=== PATIENT | female | born 1970 | race American Indian/Alaskan Native ===

== ENCOUNTER 2019-01-05 12:40 | Emergency (ER) | payer MEDICAID ==
[2019-01-05] MEDS ORDERED: TYLENOL PO ONE (13:23)
[2019-01-05] MEDS ORDERED: PEPCID PO ONE (13:23)
[2019-01-05] MEDS ORDERED: IBUPROFEN PO ONE (13:23)
--- NOTE | 2019-01-05 13:24 | Emergency Department Report ---
ED General Adult HPI - General Chief complaint: Chest Pain Stated complaint: CHEST PAIN Time Seen by Provider: 01/05/19 13:00 Source: patient, EMS (ems notes not available at time of chart dictation), RN notes reviewed Mode of arrival: Ambulatory Limitations: Physical Limitation, Other (patient is a poor historian) - History of Present Illness Initial comments: This is a 48-year-old female. Her primary care doctor is Dr. Patel Glez. Her past medical history includes conversion disorder with seizures or convulsions, hemiplegia, hypokalemia, depression, cluster headache, hypertension, GERD/gastritis with presumed esophagitis. Also has a history of moyamoya disease The patient presents to the ER with a complaint of nontraumatic left-sided chest wall pain. The chest wall pain involves the breast, and neck. There is no vomiting. There is no diaphoresis. Patient denies exertional shortness of breath. The patient denies similar thunderclap headache. She denies ocular discharge. She denies exertional shortness of breath. She denies vomiting. She denies lower abdominal pain. She denies urinary symptoms. She is not certain if she has taken aspirin in the past couple days. As per her medication list, it appears that she takes daily aspirin. She makes known notation of leg pain or leg swelling. She denies oral contraceptive use. -: Gradual Location: chest Severity scale (0 -10): 6 Quality: aching Consistency: constant Improves with: rest Worsens with: movement - Related Data Allergies Allergy/AdvReac Type Severity Reaction Status Date / Time No Known Allergies Allergy Unverified 01/05/19 14:09 ED Review of Systems ROS: Stated complaint: CHEST PAIN Other details as noted in HPI Constitutional: denies: fever Eyes: denies: eye discharge ENT: other (chronic dental pain). denies: epistaxis Respiratory: denies: wheezing Cardiovascular: chest pain Genitourinary: denies: dysuria Musculoskeletal: arthralgia Neurological: weakness (chronic upper extremity weakness) ED Past Medical Hx - Past Medical History Previous Medical History?: Yes Hx Hypertension: Yes Hx CVA: Yes Hx Heart Attack/AMI: No Hx Congestive Heart Failure: No Hx Diabetes: No Hx Deep Vein Thrombosis: No Hx Pulmonary Embolism: No Hx GERD: Yes Hx Liver Disease: No Hx Renal Disease: No Hx of Cancer: No Hx Arthritis: No Hx Headaches / Migraines: No Hx Seizures: Yes Hx Kidney Stones: No Hx Psychiatric Treatment: No Hx Asthma: No Hx COPD: No Hx Tuberculosis: No Hx Dementia: No Hx HIV: No - Surgical History Past Surgical History?: No Hx Coronary Stent: No Hx Open Heart Surgery: No Hx Pacemaker: No Hx Internal Defibrillator: No Hx Cholecystectomy: No Hx Appendectomy: No Hx Breast Surgery: No - Social History Smoking Status: Never Smoker Substance Use Type: None ED Physical Exam - General Limitations: Physical Limitation General appearance: alert, anxious, obese - Head Head exam: Present: atraumatic, normocephalic - Eye Eye exam: Present: normal appearance - ENT ENT exam: Present: normal orophraynx, mucous membranes moist, normal external ear exam, other (she has poor dentition) - Neck Neck exam: Present: normal inspection, full ROM. Absent: tenderness, mening ismus - Respiratory Respiratory exam: Present: normal lung sounds bilaterally, chest wall tenderness, other (chaperoned by a auto research engineer Domingo Banegas). Absent: respiratory distress, wheezes, rales, rhonchi, stridor - Cardiovascular Cardiovascular Exam: Present: regular rate, normal rhythm, normal heart sounds. Absent: bradycardia, tachycardia, irregular rhythm, systolic murmur, diastolic murmur, rubs, gallop - GI/Abdominal GI/Abdominal exam: Present: soft. Absent: distended, tenderness, guarding, rebound, rigid, pulsatile mass - Extremities Exam Extremities exam: Present: pedal edema, other (2+ pulses noted in the bilateral upper, lower extremities. Compartments soft. No long bony tenderness. The pelvis is stable.). Absent: normal inspection (contraction noted in left upper extremity. Patient and a chronic-appearing splint.), tenderness, calf tenderness - Back Exam Back exam: Present: normal inspection, full ROM. Absent: tenderness, CVA tenderness (R), CVA tenderness (L), paraspinal tenderness, vertebral tenderness - Neurological Exam Neurological exam: Present: alert, other (there is no facial droop. The tongue is midline. The extraocular movements are intact bilaterally. 5 out of 5 strength in 4 extremities bilaterally. Sensation is intact to light touch in 4 extremities.) - Psychiatric Psychiatric exam: Present: anxious - Skin Skin exam: Present: warm, dry, intact, normal color. Absent: rash ED Course Vital Signs 01/05/19 01/05/19 01/05/19 12:51 14:13 15:06 Temperature 98.2 F Pulse Rate 61 Respiratory 14 18 Rate Blood Pressure 144/86 Blood Pressure 144/86 [Right] O2 Sat by Pulse 100 98 Oximetry 01/05/19 01/05/19 01/05/19 15:16 15:56 16:11 Temperature Pulse Rate Respiratory Rate Blood Pressure Blood Pressure [Right] O2 Sat by Pulse 99 87 100 Oximetry 01/05/19 01/05/19 01/05/19 16:15 16:30 16:45 Temperature Pulse Rate Respiratory Rate Blood Pressure 147/88 160/94 160/94 Blood Pressure [Right] O2 Sat by Pulse 99 100 100 Oximetry 01/05/19 01/05/19 01/05/19 17:01 17:15 17:31 Temperature Pulse Rate Respiratory 18 20 Rate Blood Pressure 161/73 161/73 149/93 Blood Pressure [Right] O2 Sat by Pulse 100 98 98 Oximetry - Reevaluation(s) Reevaluation #1: 01/05/19 14:23 Differential diagnosis, including but not limited to: GERD, gastritis, hiatal hernia, costochondritis, pulmonary embolism, anxiety, pneumonia Assessment and plan: 48-year-old female with poorly characterized reproducible chest wall pain. She is on daily aspirin therapy. EKG nonspecific. Patient is smiling and laughing with ER staff members, and is eating food right now it appears quite comfortable. She is not tachycardic, she is not hypoxic, does not appear to have asymmetrically swollen lower extremities, I think a pulmonary embolus was quite unlikely. We will treat her pain, and obtain laboratory stud ies to risk stratify patient for pulmonary embolism, and acute coronary syndrome. Of note, patient's advanced directives include DO NOT RESUSCITATE, DO NOT INTUBATE. Reevaluation #2: 01/05/19 18:17 Patient went to nuclear medicine study, and then became agitated, and would not cooperate with the study. Patient is medicated to allow for acquisition of diagnostics. Her enclosed paperwork from care home indicates an allergy to contrast dye, which is not further specified are clarified. 01/05/19 18:39 Reevaluation #3: 01/05/19 18:39 The patient continues to remain agitated and nuclear medicine suite. The technologist indicates she is still climbing on the stretcher, and not responding to commands or instructions. Geodon is ordered Reevaluation #4: 01/05/19 19:12 X-ray of the chest is negative for acute disease. Geodon was not needed. Resting comfortably in stretcher, no acute distress. Reevaluation #5: 01/05/19 19:25 Nuclear medicine study reviewed and appreciated. Normal perfusion images are noted. This study carries an extremely low probability of pulmonary embolism. He she will be discharged to follow up with outpatient primary care, cardiology. ED Medical Decision Making - Lab Data Result diagrams: 01/05/19 13:49 01/05/19 13:49 Vital Signs 01/05/19 01/05/19 12:51 14:13 Temperature 98.2 F Pulse Rate 61 Respiratory 14 18 Rate Blood Pressure 144/86 Blood Pressure 144/86 [Right] O2 Sat by Pulse 100 Oximetry Lab Results 01/05/19 Range/Units 13:49 WBC 8.4 (4.5-11.0) K/mm3 RBC 4.20 (3.65-5.03) M/mm3 Hgb 12.6 (10.1-14.3) gm/dl Hct 38.2 (30.3-42.9) % MCV 91 (79-97) fl MCH 30 (28-32) pg MCHC 33 (30-34) % RDW 15.4 H (13.2-15.2) % Plt Count 267 (140-440) K/mm3 Lymph % (Auto) 28.5 (13.4-35.0) % [place] % (Auto) 6.3 (0.0-7.3) % Eos % (Auto) 4.0 (0.0-4.3) % Baso % (Auto) 0.5 (0.0-1.8) % Lymph # 2.4 (1.2-5.4) K/mm3 [place] # 0.5 (0.0-0.8) K/mm3 Eos # 0.3 (0.0-0.4) K/mm3 Baso # 0.0 (0.0-0.1) K/mm3 Seg Neutrophils % 60.7 (40.0-70.0) % Seg Neutrophils # 5.1 (1.8-7.7) K/mm3 - EKG Data -: EKG Interpreted by Wi EKG shows normal: sinus rhythm Rate: normal - EKG Data When compared to previous EKG there are: previous EKG unavailable 01/05/19 14:24 This is a normal sinus rhythm, 63 bpm, normal axis, QTC 443 ms, T wave inversion V2, there is motion artifact, there is low voltage, this is an abnormal EKG, there is no prior for comparison, this EKG is not consistent with ST elevation myocardial infarction. - Radiology Data Radiology results: pending Critical care attestation.: If time is entered above; I have spent that time in minutes in the direct care of this critically ill patient, excluding procedure time. ED Disposition Clinical Impression: History of chest pain Disposition: [id number]/TX-[id number] ANOTHER TYPE HLTHCARE Is pt being admited?: No Does the pt Need Aspirin: No Condition: Stable Additional Instructions: Continue outpatient medications. Follow up with a consulting utility forester within the next 3-5 days for complaint of chest pain. Avoid consumption of Motrin, ibuprofen, Naprosyn, Aleve, heavy, spicy foods. Return to the emergency room right away with new, worsening or different symptoms, or symptoms not present on the initial emergency room evaluation. Referrals: LB MARES MD [Primary Care Provider] - 3-5 Days [facility] [Provider Group] - 3-5 Days [facility] [Provider Group] - 3-5 Days Time of Disposition: 19:27 (back to care home)
[2019-01-05 14:14] LABS: Basophils % (Auto) 0.5 % (0.0-1.8); Eosinophils # (Auto) 0.3 K/mm3 (0.0-0.4); Hematocrit 38.2 % (30.3-42.9); Hemoglobin 12.6 gm/dl (10.1-14.3); Lymphocytes # (Auto) 2.4 K/mm3 (1.2-5.4); Lymphocytes % (Auto) 28.5 % (13.4-35.0); Mean Corpuscular HGB Conc 33 % (30-34); Mean Corpuscular Volume 91 fl (79-97); Monocytes # (Auto) 0.5 K/mm3 (0.0-0.8); Monocytes % (Auto) 6.3 % (0.0-7.3); Platelet Count 267 K/mm3 (140-440); Red Cell Distribution Width 15.4 % (13.2-15.2)
[2019-01-05 14:32] LABS: Alanine Aminotransferase 14 units/L (7-56); BUN/Creatinine Ratio 17; Blood Urea Nitrogen 12 mg/dL (7-17); Calcium 9.3 mg/dL (8.4-10.2); Hemolysis Index 10
[2019-01-05 14:36] LABS: INR 0.98 (0.87-1.13)
--- NOTE | 2019-01-05 15:14 | XRay Report ---
AP CHEST: HISTORY: chest pain There is poor inspiration. AP view of the chest demonstrates a normal mediastinal and cardiac contour with clear lungs and normal bony and soft tissue structures. IMPRESSION: Negative expiratory chest x-ray.
[2019-01-05] MEDS ORDERED: ATIVAN IV STA (18:02)
[2019-01-05] MEDS ORDERED: HALDOL IM PRN (18:02)
[2019-01-05] MEDS ORDERED: GEODON IM STA (18:38)
[2019-01-05] MEDS ORDERED: GEODON IM ONE (18:39)
--- NOTE | 2019-01-05 19:23 | Nuclear Medicine Report ---
PROCEDURE: Nuclear medicine ventilation and perfusion lung scan. TECHNIQUE: Ventilation imaging was done in the posterior projection using 18.31 mCi of xenon-133 gas . Perfusion imaging was done in multiple projections using 4.61 mCi of technetium 99m MAA. HISTORY: Chest pain. COMPARISONS: Comparison chest radiograph 01/05/2019. FINDINGS: There is homogeneous ventilation bilaterally. There is minimal trapping of xenon gas bilaterally duri ng the washout phase of the study. The perfusion images are homogeneous bilaterally. There are no per fusion defects identified. The perfusion images are normal and carry an extremely low probability of pulmonary embolism. IMPRESSION: Normal perfusion images. This document is electronically signed by Jermaine Short MD., January 05 2019 07:21:10 PM ET
[2019-01-05 21:59] VITALS: BP 147/87
== END 2019-01-05 21:59 | disposition other institution (70) ==
LOC: ED 12:40
DX: R07.89 Other chest pain (principal); F44.4 Conversion disorder with motor symptom or deficit; R56.9 Unspecified convulsions; G81.90 Hemiplegia, unspecified affecting unspecified side; E87.6 Hypokalemia; G44.009 Cluster headache syndrome, unspecified, not intractable; I10 Essential (primary) hypertension; K21.9 Gastro-esophageal reflux disease without esophagitis; Z86.73 Personal history of transient ischemic attack (TIA), and cerebral infarction without residual deficits
CPT/HCPCS: 36415; 71045; 78582; 80053; 82962; 84484; 84702; 85025; 85379; 85610; 85730; 93005; 93010; 96372; 96374; 99285; A9540; A9558; J1630; J2060; J3486

== ENCOUNTER 2019-01-18 03:26 | Inpatient (IN) | payer MEDICAID ==
[2019-01-18] MEDS ORDERED: SOLU-Medrol IV ONE (04:07)
[2019-01-18] MEDS ORDERED: PROVENTIL IH ONE (04:07)
[2019-01-18] MEDS ORDERED: ATROVENT IH ONE (04:07)
[2019-01-18 04:43] LABS: Basophils % (Auto) 0.1 % (0.0-1.8); Eosinophils # (Auto) 0.5 K/mm3 (0.0-0.4); Eosinophils % (Auto) 2.9 % (0.0-4.3); Hematocrit 38.1 % (30.3-42.9); Hemoglobin 12.5 gm/dl (10.1-14.3); Lymphocytes # (Auto) 1.5 K/mm3 (1.2-5.4); Lymphocytes % (Auto) 9.4 % (13.4-35.0); Mean Corpuscular HGB Conc 33 % (30-34); Mean Corpuscular Volume 91 fl (79-97); Monocytes # (Auto) 0.9 K/mm3 (0.0-0.8); Monocytes % (Auto) 5.7 % (0.0-7.3); Platelet Count 267 K/mm3 (140-440); Red Cell Distribution Width 15.1 % (13.2-15.2)
--- NOTE | 2019-01-18 04:43 | XRay Report ---
CHEST 1 VIEW INDICATION: MAIN: PER TRIAGE: Pt reports sudden onset of midsternal, stabbing cp w/ eliz on exertion . COMPARISON: 01/05/2019. FINDINGS: Support devices: None. Heart: Normal. Lungs/Pleura: There is pulmonary venous hypertension. There appears to be mild interstitial edema. No consolidation, significant effusion, or pneumothorax. IMPRESSION: 1. Pulmonary venous hypertension with questionable mild interstitial edema. Signer Name: Diego Lima MD Signed: 01/18/2019 4:38 AM Workstation Name: [id number]
[2019-01-18 04:56] LABS: INR 0.97 (0.87-1.13)
[2019-01-18 04:57] LABS: Partial Thromboplastin Time 28.6 Sec. (24.2-36.6)
[2019-01-18 05:06] LABS: BUN/Creatinine Ratio 13; Blood Urea Nitrogen 10 mg/dL (7-17); Calcium 8.9 mg/dL (8.4-10.2); Hemolysis Index 127
--- NOTE | 2019-01-18 05:19 | Emergency Department Report ---
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 The patient reports cough, denies fever. Denies history of asthma. Patient denies leg pain or swelling. Of note, the niles kaufman was seen in this ER approximately 2 weeks ago with complaint of chest pain. Patient has history of contrast allergy, so VQ scan was done at this time, and found to be normal, with low probability for PE. MD Complaint: chest pain -: days(s) (1) Onset: during rest Pain Location: left chest Pain Radiation: none Quality: sharp Consistency: constant Improves With: nothing Worsens With: nothing re: dyspnea Other Symptoms: cough. denies: fever - Related Data Allergies Allergy/AdvReac Type Severity Reaction Status Date / Time acetaminophen [From Tylenol] Allergy Unknown Verified 01/18/19 04:14 Iodinated Contrast- Oral and Allergy Unknown Verified 01/18/19 04:14 IV Dye penicillin G Allergy Unknown Verified 01/18/19 04:14 Heart Score - HEART Score History: Slightly suspicious EKG: Normal Age: 45-65 Risk factors: 1-2 risk factors Troponin: < normal limit HEART Score: 2 ED Review of Systems ROS: Stated complaint: CP Other details as noted in HPI Comment: All other systems reviewed and negative Constitutional: denies: fever Respiratory: shortness of breath, wheezing Cardiovascular: chest pain Gastrointestinal: denies: nausea, vomiting Musculoskeletal: other (denies leg pain) ED Past Medical Hx - Past Medical History Previous Medical History?: Yes Hx Hypertension: Yes Hx CVA: Yes Hx Heart Attack/AMI: No Hx Congestive Heart Failure: No Hx Diabetes: No Hx Deep Vein Thrombosis: No Hx Pulmonary Embolism: No Hx GERD: Yes Hx Liver Disease: No Hx Renal Disease: No Hx Arthritis: No Hx Headaches / Migraines: No Hx Seizures: Yes Hx Kidney Stones: No Hx Psychiatric Treatment: No Hx Asthma: No Hx COPD: No Hx Tuberculosis: No Hx Dementia: No Hx HIV: No - Surgical History Hx Coronary Stent: No Hx Open Heart Surgery: No Hx Pacemaker: No Hx Internal Defibrillator: No Hx Cholecystectomy: No Hx Appendectomy: No Hx Breast Surgery: No - Social History Smoking Status: Never Smoker ED Physical Exam - General Limitations: Physical Limitation, Other General appearance: alert - Head Head exam: Present: atraumatic, normocephalic - Eye Eye exam: Present: normal appearance - ENT ENT exam: Present: mucous membranes moist - Neck Neck exam: Present: normal inspection - Respiratory Respiratory exam: Present: respiratory distress, wheezes - Cardiovascular Cardiovascular Exam: Present: normal rhythm, tachycardia - GI/Abdominal GI/Abdominal exam: Present: soft. Absent: distended, tenderness - Extremities Exam Extremities exam: Present: normal inspection. Absent: pedal edema, calf tenderness - Neurological Exam Neurological exam: Present: alert. Absent: CN II-XII intact (dysarthria present), motor sensory deficit (baseline left sided weakness present) - Psychiatric Psychiatric exam: Present: normal affect, normal mood - Skin Skin exam: Present: warm, dry, intact, normal color ED Course Vital Signs 01/18/19 01/18/19 01/18/19 03:56 04:00 04:02 Temperature 98.7 F Pulse Rate 78 104 H Pulse Rate [ Bilateral Throughout] Respiratory 23 19 Rate Respiratory Rate [Bilateral Throughout] Blood Pressure 174/109 O2 Sat by Pulse 94 93 Oximetry 01/18/19 01/18/19 01/18/19 04:06 04:28 04:30 Temperature Pulse Rate 104 H 106 H Pulse Rate [ 102 H Bilateral Throughout] Respiratory 13 28 H Rate Respiratory 26 H Rate [Bilateral Throughout] Blood Pressure 157/103 155/94 O2 Sat by Pulse 96 98 Oximetry 01/18/19 01/18/19 04:55 05:00 Temperature Pulse Rate 128 H Pulse Rate [ 120 H Bilateral Throughout] Respiratory 17 Rate Respiratory 26 H Rate [Bilateral Throughout] Blood Pressure 161/92 O2 Sat by Pulse 95 Oximetry ED Medical Decision Making - Lab Data Result diagrams: 01/18/19 04:28 01/18/19 04:28 - EKG Data -: EKG Interpreted by Me EKG shows normal: sinus rhythm, axis, intervals, QRS complexes, ST-T waves Rate: tachycardia (rate 108) - EKG Data Interpretation: no acute changes - Radiology Data Radiology results: report reviewed, image reviewed - Medical Decision Making - 48 yo F from assisted, hx CVA, with left chest pain, cough, wheezing - albuterol nebs, solumedrol given; wheezing improved; pt denies hx of asthma - pt afebrile, however, has elevated WBCs of 16 - CXR shows interstitial infiltrates, possible pulm edema; BNP normal, possibly infectious - blood cultures drawn and levaquin given - EKG shows sinus tach with no ST changes, troponin normal - will admit to hospitalist, Dr Reagan, for further management - Differential Diagnosis pneumonia, bronchitis, pulm edema Critical Care Time: Yes Critical care time in (mins) excluding proc time.: 35 Critical care attestation.: If time is entered above; I have spent that time in minutes in the direct care of this critically ill patient, excluding procedure time. Critical Care Time: 35 minutes ED Disposition Clinical Impression: Acute chest pain, Acute respiratory distress Disposition: - OP ADMIT IP TO THIS HOSP Is pt being admited?: Yes Condition: Stable Instructions: Chest Pain (ED) Referrals: PRIMARY CARE, [Primary Care Provider] - 3-5 Days Time of Disposition: 05:30
[2019-01-18] MEDS ORDERED: LEVAQUIN 750MG/150ML 750 MG/150 ML BAG IV ONE (05:26)
[2019-01-18] MEDS ORDERED: MORPHINE IV PRN (06:28)
[2019-01-18] MEDS ORDERED: ZOFRAN IV PRN (06:29)
[2019-01-18] MEDS ORDERED: NITROSTAT SL PRN (06:31)
[2019-01-18] MEDS ORDERED: ROBITUSSIN PO PRN (06:33)
[2019-01-18] MEDS ORDERED: HEPARIN ONE (10:02)
[2019-01-18] MEDS ORDERED: BABY ASPIRIN ONE (10:02)
[2019-01-18] MEDS ORDERED: NITRO-BID 2% TP ONE (10:03)
[2019-01-18] MEDS: BABY ASPIRIN PO SCH (10:11)
[2019-01-18] MEDS: NITRO-BID 2% TP SCH (10:11)
[2019-01-18] MEDS: HEPARIN SUB-Q SCH ×2 (10:11→22:35)
--- NOTE | 2019-01-18 10:14 | History and Physical Report ---
CHIEF COMPLAINT: Chest pain. Other complaint includes shortness of breath. HISTORY OF PRESENT ILLNESS: The patient is a 48-year-old female brought from the [place] [facility] because of chest pain, which the patient said it is in the retrosternal area and also in the precordial area. Pain lasted for one day and was associated with shortness of breath and wheezing. There was also history of nausea with no vomiting. The patient was admitted to having non-productive cough and denied history of fever or chills. There is also no history of swelling in the ankles. The patient was seen in the Emergency Room 2 weeks ago with complaint of chest pain and had a negative V/Q scan. PAST MEDICAL HISTORY: Pertinent for cerebrovascular accident with left-sided weakness, hypertension. Also, the patient has past history of gastroesophageal reflux disease, seizure disorder. PAST SURGICAL HISTORY: Unremarkable. FAMILY HISTORY: Reviewed and noncontributory. SOCIAL HISTORY: The patient stays at the [place] [facility]. Does not smoke. Does not drink alcohol or use illicit drug. MEDICATIONS: The patient's home medications are not known at this time. ALLERGIES: The patient is allergic to ACETAMINOPHEN, IODINATED CONTRAST, PENICILLIN. REVIEW OF SYSTEMS: CONSTITUTIONAL: There is no fever, no chills, no diaphoresis. HEENT: There is no headache or sore throat. CARDIOVASCULAR: Chest pain is present. No orthopnea. RESPIRATORY: Shortness of breath is present. Cough is present. GASTROINTESTINAL: There is nausea, but no vomiting. No abdominal pain, diarrhea or constipation. NEUROLOGICAL: There is no numbness, no dizziness, no altered mental status. MUSCULOSKELETAL: There is no joint pain or swelling. DERMATOLOGICAL: There is no skin rash or itching. GENITOURINARY: There is no dysuria, hematuria or flank pain. Rest of system review is normal. PHYSICAL EXAMINATION: GENERAL: At the time of exam, the patient was found to be alert, oriented x 3, and not in acute distress. VITAL SIGNS: At the initial time of presentation shows temperature of 98.7 degrees Fahrenheit, pulse of 78, respiration 23, blood pressure 174/109 which later came down to 155/94. HEENT: Pupils to be equal, round, reactive to light and accommodation. Extraocular muscles are intact. NECK: Supple with no JVD or carotid bruit. CARDIOVASCULAR: Normal first and second heart sounds with no gallops or murmurs. RESPIRATORY: Good air entry on both sides of the lungs with mild respiratory wheezing. GASTROINTESTINAL: Abdomen to be full, soft, nontender with no organomegaly or rigidity. NEUROLOGIC: The patient with dysarthria, which is chronic and left hemiparesis, which is old and chronic. No new focal neurologic deficit. MUSCULOSKELETAL: No joint swelling or tenderness. DERMATOLOGICAL: No skin rash. GENITOURINARY: No costovertebral angle tenderness. PERTINENT LABORATORY AND IMAGING STUDIES: The patient has chest x-ray done that shows pulmonary venous hypertension with questionable mild interstitial edema. The patient's lab [place] [id number] with CBC differential showing elevated segmented neutrophil count of 81.9%. The patient's chemistry showed low sodium level of 136 with rest of chemistry being unremarkable. The patient's troponin level was unremarkable. Brain natriuretic peptide level came back normal. DIAGNOSES: 1. Chest pain. 2. Bronchitis. PLAN OF CARE: 1. The patient will be admitted to telemetry. 2. The patient will have cardiac enzymes checked serially and involves troponin and CPK and CK-MB every 6 hours x 2 more levels. 3. The patient will have cardiology consult with Dr. Interiano. 4. The patient will be on aspirin 81 mg by mouth daily and will be on nitro paste half inch to the anterior chest wall q.i.d. 5. The patient will be on Nitrostat 0.4 mg sublingual every 5 minutes and will be on IV morphine 2 mg every 3 hours as needed for pain and IV Zofran 4 mg every 8 hours for nausea and vomiting. 6. The patient will be on IV Levaquin 750 mg daily for treatment of bronchitis. 7. The patient will be on guaifenesin 200 mg by mouth every 4 hours as needed for cough and will be on heparin 5000 units subcu q. 12 hours for DVT prophylaxis. 8. The patient will be on IV Zofran 4 mg every 8 hours as needed for nausea and vomiting and will be on oxygen by nasal cannula at 2 liters per minute. 9. The patient will remain n.p.o. until seen by the pipelines supervisor. JOB# [id number] OCN/NTS
--- NOTE | 2019-01-18 12:54 | Consultation ---
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 Patient was sent from the intermediate to the emergency department with report of chest pain and shortness of breath. Cardiac consultation has been requested. A chest x-ray reports pulmonary venous hypertension with questionable mild interstitial edema. Patient has an elevated WBC of 16,300. Pro BNP is normal. She has no fever. An ECG is sinus tachycardia, no acute ischemic changes. Medications and Allergies Allergies Allergy/AdvReac Type Severity Reaction Status Date / Time acetaminophen [From Tylenol] Allergy Unknown Verified 01/18/19 04:14 Iodinated Contrast- Oral and Allergy Unknown Verified 01/18/19 04:14 IV Dye penicillin G Allergy Unknown Verified 01/18/19 04:14 Home Medications Medication Instructions Recorded Confirmed Last Taken Type Aspirin 325 mg PO QDAY 01/18/19 01/18/19 Unknown History Baclofen [Lioresal] 10 mg PO TID 01/18/19 01/18/19 Unknown History levETIRAcetam [Keppra TAB] 500 mg PO BID 01/18/19 01/18/19 Unknown History Active Meds: Active Medications Aspirin (Baby Aspirin) 81 mg PO QDAY [facility] Last Admin: 01/18/19 10:11 Dose: Not Given Documented by: Guaifenesin (Robitussin) 200 mg PO Q4H PRN PRN Reason: Cough Heparin Sodium (Porcine) (Heparin) 5,000 unit SUB-Q Q12HR [facility] Last Admin: 01/18/19 10:11 Dose: 5,000 unit Documented by: Levofloxacin/Dextrose (Levaquin 750mg/150ml) 750 mg in 150 mls @ 100 mls/hr IV Q24HR [facility]; Protocol Morphine Sulfate (Morphine) 2 mg IV Q3H PRN PRN Reason: Pain, Moderate (4-6) Nitroglycerin (Nitro-Bid 2%) 0.5 inch TP QIDNTG [facility]; Protocol Last Admin: 01/18/19 10:11 Dose: 0.5 inch Documented by: Nitroglycerin (Nitrostat) 0.4 mg SL .Q5MIN PRN PRN Reason: Chest Pain Ondansetron HCl (Zofran) 4 mg IV Q8H PRN PRN Reason: Nausea And Vomiting Physical Examination Vital Signs Pulse Resp Pulse Ox 78 23 94 01/18/19 03:56 01/18/19 03:56 01/18/19 03:56 General appearance: no acute distress HEENT: Positive: PERRL Cardiac: Positive: Tachycardia Lungs: Positive: Decreased Breath Sounds Results 01/18/19 04:28 01/18/19 04:28 Coagulation 01/18/19 Range/Units 04:28 PT 12.6 (12.2-14.9) Sec. INR 0.97 (0.87-1.13) APTT 28.6 (24.2-36.6) Sec. CBC 01/18/19 Range/Units 04:28 WBC 16.3 H (4.5-11.0) K/mm3 RBC 4.20 (3.65-5.03) M/mm3 Hgb 12.5 (10.1-14.3) gm/dl Hct 38.1 (30.3-42.9) % Plt Count 267 (140-440) K/mm3 Lymph # 1.5 (1.2-5.4) K/mm3 Parmer # 0.9 H (0.0-0.8) K/mm3 Eos # 0.5 H (0.0-0.4) K/mm3 Baso # 0.0 (0.0-0.1) K/mm3 Comprehensive Metabolic Panel 01/18/19 Range/Units 04:28 Sodium 136 L (137-145) mmol/L Potassium 4.8 (3.6-5.0) mmol/L Chloride 101.3 (98-107) mmol/L Carbon Dioxide 22 (22-30) mmol/L BUN 10 (7-17) mg/dL Creatinine 0.8 (0.7-1.2) mg/dL Glucose 109 H (65-100) mg/dL Calcium 8.9 (8.4-10.2) mg/dL Assessment and Plan Chest pain Shortness of breath Prior CVA Hypertension
[2019-01-18 13:03] LABS: Creatine Kinase MB 1.2 ng/mL (0.0-4.0)
--- NOTE | 2019-01-18 18:34 | Progress Note ---
Assessment and Plan - Patient Problems (1) CVA (cerebral vascular accident) Current Visit: Yes Status: Acute Plan to address problem: At present patient has old CVA no evidence of new CVA. This dates hemiparesis has been there for years and has had no change. Risk factors fairly well controlled. (2) Acute chest pain Current Visit: Yes Status: Acute Plan to address problem: Essential workup of chest pain is negative has been that way in the recent past. Most likely etiology chronic cough and bronchitis while difficult to tail. Appears to be more pulmonary in nature we'll treat his bronchitis continue antibiotics and nebs. Patient has leukocytosis consistent with bronchitis or infectious etiology as well. (3) Acute respiratory distress Current Visit: Yes Status: Resolved (4) Morbid obesity Current Visit: Yes Status: Acute Plan to address problem: Patient not motivated to lose weight. Will be difficult with level of cognition. History Interval history: Patient well known to myself from the senior care 48-year-old with a history of previous CVA left hemiparesis, hypertension, GERD, seizure disorder presents with an episode of chest pain associated with shortness of breath for several days. He shouldn't such a poor historian and often times in the senior care will complain of headache. Has such expressive aphasia hard to determine what patient's complaint is. At this time she is not having any chest pain she points more to the flank and then again she will point more to headache and laugh. Very poor historian. Patient has had this symptom before and workup in senior care setting his been unremarkable. Patient has had a cough for several weeks prior to this consistent with bronchitis. At present patient seems to have atypical chest pain. Admitted to telemetry cardiac isoenzymes are unremarkable. Patient placed on antiplatelet therapy. We'll continue to treat bronchitis with Levaquin. Hospitalist Physical - Constitutional Vitals: Temp Pulse Resp BP Pulse Ox 98.7 F 100 H 28 H 142/89 94 01/18/19 04:02 01/18/19 16:00 01/18/19 16:00 01/18/19 16:00 01/18/19 16:00 General appearance: Present: no acute distress - EENT Eyes: Present: PERRL, EOM intact ENT: hearing intact, clear oral mucosa, dentition normal - Neck Neck: Present: supple, normal ROM - Respiratory Respiratory effort: normal Respiratory: bilateral: CTA - Cardiovascular Rhythm: regular - Extremities Extremities: no ischemia, pulses intact, pulses symmetrical Peripheral Pulses: within normal limits - Abdominal General gastrointestinal: soft, distended, normal bowel sounds, other (obese) - Integumentary Integumentary: Present: clear, warm, dry - Psychiatric Psychiatric: appropriate mood/affect, other (cognitive deficit expressive aphasia) - Neurologic Neurologic: focal deficits, moves all extremities Results - Labs CBC & Chem 7: 01/18/19 04:28 01/18/19 04:28 Labs: Laboratory Last Values WBC 16.3 K/mm3 (4.5-11.0) H 01/18/19 04:28 RBC 4.20 M/mm3 (3.65-5.03) 01/18/19 04:28 Hgb 12.5 gm/dl (10.1-14.3) 01/18/19 04:28 Hct 38.1 % (30.3-42.9) 01/18/19 04:28 MCV 91 fl (79-97) 01/18/19 04:28 MCH 30 pg (28-32) 01/18/19 04:28 MCHC 33 % (30-34) 01/18/19 04:28 RDW 15.1 % (13.2-15.2) 01/18/19 04:28 Plt Count 267 K/mm3 (140-440) 01/18/19 04:28 Lymph % (Auto) 9.4 % (13.4-35.0) L 01/18/19 04:28 Larue % (Auto) 5.7 % (0.0-7.3) 01/18/19 04:28 Eos % (Auto) 2.9 % (0.0-4.3) 01/18/19 04:28 Baso % (Auto) 0.1 % (0.0-1.8) 01/18/19 04:28 Lymph # 1.5 K/mm3 (1.2-5.4) 01/18/19 04:28 Larue # 0.9 K/mm3 (0.0-0.8) H 01/18/19 04:28 Eos # 0.5 K/mm3 (0.0-0.4) H 01/18/19 04:28 Baso # 0.0 K/mm3 (0.0-0.1) 01/18/19 04:28 Seg Neutrophils % 81.9 % (40.0-70.0) H 01/18/19 04:28 Seg Neutrophils # 13.3 K/mm3 (1.8-7.7) H 01/18/19 04:28 PT 12.6 Sec. (12.2-14.9) 01/18/19 04:28 INR 0.97 (0.87-1.13) 01/18/19 04:28 APTT 28.6 Sec. (24.2-36.6) 01/18/19 04:28 Sodium 136 mmol/L (137-145) L 01/18/19 04:28 Potassium 4.8 mmol/L (3.6-5.0) 01/18/19 04:28 Chloride 101.3 mmol/L (98-107) 01/18/19 04:28 Carbon Dioxide 22 mmol/L (22-30) 01/18/19 04:28 18 mmol/L 01/18/19 04:28 BUN 10 mg/dL (7-17) 01/18/19 04:28 0.8 mg/dL (0.7-1.2) 01/18/19 04:28 Estimated GFR > 60 ml/min 01/18/19 04:28 13 % 01/18/19 04:28 Glucose 109 mg/dL (65-100) H 01/18/19 04:28 Calcium 8.9 mg/dL (8.4-10.2) 01/18/19 04:28 86 units/L (30-135) 01/18/19 12:23 CK-MB (CK-2) 1.2 ng/mL (0.0-4.0) 01/18/19 12:23 CK-MB (CK-2) Rel Index 1.3 (0-4) 01/18/19 12:23 < 0.010 ng/mL (0.00-0.029) 01/18/19 12:23 NT-Pro-B Natriuret Pep 58.27 pg/mL (0-450) 01/18/19 04:28 - Imaging and Cardiology Chest x-ray: image reviewed Active Medications - Current Medications Current Medications: Generic Name Dose Route Start Last Admin Trade Name Silvio PRN Reason Stop Dose Admin Aspirin 81 mg 01/18/19 10:00 01/18/19 10:11 Baby Aspirin PO Not Given QDAY RENAE Guaifenesin 200 mg 01/18/19 06:33 Robitussin PO Q4H PRN Cough Heparin Sodium (Porcine) 5,000 unit 01/18/19 10:00 01/18/19 10:11 Heparin SUB-Q 5,000 unit Q12HR [facility] Administration Levofloxacin/Dextrose 750 mg in 150 mls @ 100 mls/hr 01/19/19 10:00 Levaquin 750mg/150ml IV Q24HR [facility] Protocol Morphine Sulfate 2 mg 01/18/19 06:28 Morphine IV Q3H PRN Pain, Moderate (4-6) Nitroglycerin 0.5 inch 01/18/19 10:00 01/18/19 10:11 Nitro-Bid 2% TP 0.5 inch QIDNTG [facility] Administration Protocol Nitroglycerin 0.4 mg 01/18/19 06:31 Nitrostat SL .Q5MIN PRN Chest Pain Ondansetron HCl 4 mg 01/18/19 06:29 Zofran IV Q8H PRN Nausea And Vomiting Nutrition/Malnutrition Assess - Attestation Statement I have reviewed and agreed w/ Malnutrition eval & tx plan: No
[2019-01-18 21:13] LABS: BUN/Creatinine Ratio 14; Blood Urea Nitrogen 10 mg/dL (7-17); Calcium 9.3 mg/dL (8.4-10.2); Hemolysis Index 10
[2019-01-18 21:16] LABS: Creatine Kinase MB 1.3 ng/mL (0.0-4.0)
[2019-01-18] MEDS: ROXICODONE PO PRN (22:35)
[2019-01-19] MEDS: NITRO-BID 2% TP SCH ×6 (06:08→18:12)
[2019-01-19] MEDS: ROXICODONE PO PRN ×2 (06:13→11:13)
[2019-01-19 07:50] LABS: Basophils % (Auto) 0.2 % (0.0-1.8); Eosinophils % (Auto) 0.2 % (0.0-4.3); Hematocrit 37.8 % (30.3-42.9); Hemoglobin 12.6 gm/dl (10.1-14.3); Lymphocytes # (Auto) 2.2 K/mm3 (1.2-5.4); Lymphocytes % (Auto) 14.5 % (13.4-35.0); Mean Corpuscular HGB Conc 33 % (30-34); Mean Corpuscular Volume 90 fl (79-97); Monocytes # (Auto) 0.8 K/mm3 (0.0-0.8); Monocytes % (Auto) 5.2 % (0.0-7.3); Platelet Count 263 K/mm3 (140-440); Red Cell Distribution Width 15.1 % (13.2-15.2)
[2019-01-19 08:17] LABS: BUN/Creatinine Ratio 17; Blood Urea Nitrogen 12 mg/dL (7-17); Calcium 9.1 mg/dL (8.4-10.2); Hemolysis Index 9
--- NOTE | 2019-01-19 08:34 | Progress Note ---
<ROXI BAUTISTA - Last Filed: 01/19/19 08:35> Assessment and Plan Chest pain Cardiac troponin levels are negative 2. EKG is a sinus rhythm with no acute ischemic ST or T-wave changes. Chest x-ray reveals normal cardiac silhouette, no interstitial edema or heart failure. VQ scan done on this presentation was reported negative. Shortness of breath Hypertension Prior CVA Recommendations: Patient's shortness of breath appears noncardiac, recommend pulmonary assessment of COPD and possible sleep apnea. We will obtain an echocardiogram for left ventricular function assessment, otherwise conservative cardiac management Subjective Date of service: 01/19/19 Interval history: No distress noted. Objective Vital Signs Temp Pulse Resp BP Pulse Ox 01/19/19 08:14 97.5 F L 74 16 155/96 97 01/19/19 03:56 97.5 F L 72 20 143/105 96 01/19/19 03:25 71 01/18/19 23:37 97.3 F L 94 H 20 146/102 96 01/18/19 20:34 103 H 01/18/19 19:50 99.1 F 102 H 20 139/91 95 01/18/19 18:09 98.2 F 102 H 16 148/96 97 01/18/19 17:20 103 H 23 146/93 97 01/18/19 17:10 104 H 28 H 145/95 95 01/18/19 17:00 102 H 28 H 143/92 97 01/18/19 16:50 110 H 25 H 143/92 95 01/18/19 16:40 100 H 27 H 141/91 95 01/18/19 16:30 101 H 27 H 141/91 93 01/18/19 16:20 100 H 25 H 137/85 97 01/18/19 16:00 100 H 28 H 142/89 94 01/18/19 15:30 99 H 26 H 139/96 97 01/18/19 15:00 105 H 22 97 01/18/19 14:30 101 H 21 144/92 97 01/18/19 14:00 104 H 26 H 145/90 98 01/18/19 13:30 106 H 19 146/87 99 01/18/19 13:00 104 H 23 144/85 98 01/18/19 12:30 103 H 24 155/78 97 01/18/19 12:00 108 H 25 H 148/92 96 01/18/19 11:30 97 H 21 131/80 95 01/18/19 11:00 101 H 21 132/86 97 01/18/19 10:30 97 H 24 134/83 96 01/18/19 10:11 91 H 129/82 01/18/19 10:00 100 H 22 142/82 96 01/18/19 09:30 101 H 23 149/87 95 01/18/19 09:00 101 H 29 H 162/94 95 - Physical Examination General: No Apparent Distress HEENT: Positive: PERRL Cardiac: Positive: Reg Rate and Rhythm Lungs: Positive: Decreased Breath Sounds Neuro: Positive: Weakness - Labs and Meds Cardiac Enzymes 01/18/19 01/18/19 Range/Units 12:23 20:18 CK-MB (CK-2) 1.2 1.3 (0.0-4.0) ng/mL CBC 01/19/19 Range/Units 06:54 WBC 15.0 H (4.5-11.0) K/mm3 RBC 4.20 (3.65-5.03) M/mm3 Hgb 12.6 (10.1-14.3) gm/dl Hct 37.8 (30.3-42.9) % Plt Count 263 (140-440) K/mm3 Lymph # 2.2 (1.2-5.4) K/mm3 [place] # 0.8 (0.0-0.8) K/mm3 Eos # 0.0 (0.0-0.4) K/mm3 Baso # 0.0 (0.0-0.1) K/mm3 Comprehensive Metabolic Panel 01/18/19 01/19/19 Range/Units 20:18 06:54 Sodium 138 138 (137-145) mmol/L Potassium 4.6 4.3 (3.6-5.0) mmol/L Chloride 104.8 105.4 (98-107) mmol/L Carbon Dioxide 21 L 23 (22-30) mmol/L BUN 10 12 (7-17) mg/dL Creatinine 0.7 0.7 (0.7-1.2) mg/dL Glucose 143 H 89 (65-100) mg/dL Calcium 9.3 9.1 (8.4-10.2) mg/dL <VASILE ALFONSO - Last Filed: 01/19/19 19:11> Assessment and Plan I have seen and evaluated the patient and agree with the assessment and plan. Patient's current symptoms are likely secondary to pulmonary issues. Echo pending. Objective Vital Signs Temp Pulse Resp BP Pulse Ox 01/19/19 19:04 99 01/19/19 12:24 98.4 F 77 20 147/100 87 01/19/19 12:00 65 01/19/19 11:09 74 155/96 01/19/19 09:55 97 01/19/19 08:14 97.5 F L 74 16 155/96 97 01/19/19 03:56 97.5 F L 72 20 143/105 96 01/19/19 03:25 71 01/18/19 23:37 97.3 F L 94 H 20 146/102 96 01/18/19 20:34 103 H 01/18/19 19:50 99.1 F 102 H 20 139/91 95 - Labs and Meds Cardiac Enzymes 01/18/19 Range/Units 20:18 CK-MB (CK-2) 1.3 (0.0-4.0) ng/mL CBC 01/19/19 Range/Units 06:54 WBC 15.0 H (4.5-11.0) K/mm3 RBC 4.20 (3.65-5.03) M/mm3 Hgb 12.6 (10.1-14.3) gm/dl Hct 37.8 (30.3-42.9) % Plt Count 263 (140-440) K/mm3 Lymph # 2.2 (1.2-5.4) K/mm3 [place]ami # 0.8 (0.0-0.8) K/mm3 Eos # 0.0 (0.0-0.4) K/mm3 Baso # 0.0 (0.0-0.1) K/mm3 Comprehensive Metabolic Panel 01/18/19 01/19/19 Range/Units 20:18 06:54 Sodium 138 138 (137-145) mmol/L Potassium 4.6 4.3 (3.6-5.0) mmol/L Chloride 104.8 105.4 (98-107) mmol/L Carbon Dioxide 21 L 23 (22-30) mmol/L BUN 10 12 (7-17) mg/dL Creatinine 0.7 0.7 (0.7-1.2) mg/dL Glucose 143 H 89 (65-100) mg/dL Calcium 9.3 9.1 (8.4-10.2) mg/dL
[2019-01-19] MEDS ORDERED: LEVAQUIN 750MG/150ML 750 MG/150 ML BAG IV SCH (10:00)
--- NOTE | 2019-01-19 10:39 | Discharge Summary ---
Providers - Providers Date of Admission: 01/18/19 06:25 Date of discharge: 01/19/19 Attending physician: BILLY ROSEN 01/18/19 06:27 Consult to Physician [CONS] Routine Comment: Consulting Provider: ANGELICA PAULSON Physician Instructions: Reason For Exam: CHEST PAIN Primary care physician: [employer] Hospitalization Condition: Stable Hospital course: Mary 48-year-old female well-known to myself. Presents with atypical chest pain. Patient expresses aphasia. Difficult to tell what is wrong sometimes. She does this quite often. Patient complained of possible chest pain workup negative has been negative in the past. Patient has coughing and most likely secondary to bronchitis. Patient had negative cardiac isoenzymes. Chest x-ray unremarkable EKG unremarkable. Stable for transfer back to nursing facility. Disposition: DC/[place]-03 SNF W [facility] - Discharge Diagnoses (1) CVA (cerebral vascular accident) Status: Chronic (2) Acute chest pain Status: Acute Comment: Noncardiac in origin secondary to bronchitis coughing. We'll treat with antibiotics. Chest pain is resolved. Got negative. (3) Acute respiratory distress Status: Resolved (4) Morbid obesity Status: Acute Core Measure Documentation - Palliative Care Palliative Care/ Comfort Measures: Not Applicable - Core Measures Any of the following diagnoses?: none Exam - Constitutional Vitals: Temp Pulse Resp BP Pulse Ox 97.5 F L 74 16 155/96 97 01/19/19 08:14 01/19/19 08:14 01/19/19 08:14 01/19/19 08:14 01/19/19 09:55 General appearance: Present: no acute distress, well-nourished - EENT Eyes: Present: PERRL ENT: hearing intact, clear oral mucosa - Neck Neck: Present: supple, normal ROM - Respiratory Respiratory effort: normal Respiratory: bilateral: CTA - Cardiovascular Heart Sounds: Present: S1 & S2. Absent: rub, click - Extremities Extremities: pulses symmetrical, No edema Extremity abnormal: other (left hemiparesis expressive aphasia focal deficit.) Peripheral Pulses: within normal limits - Abdominal General gastrointestinal: Present: soft, non-tender, non-distended, normal bowel sounds Female genitourinary: Present: normal - Integumentary Integumentary: Present: clear, warm, dry - Musculoskeletal Musculoskeletal: gait normal, strength equal bilaterally - Psychiatric Psychiatric: appropriate mood/affect, intact judgment & insight - Neurologic Neurologic: CNII-XII intact, moves all extremities Plan Activity: advance as tolerated Diet: low cholesterol, low salt Follow up with: PRIMARY CARE, [Primary Care Provider] - 3-5 Days
[2019-01-19] MEDS: BABY ASPIRIN PO SCH (11:04)
[2019-01-19] MEDS: HEPARIN SUB-Q SCH (11:05)
[2019-01-19 15:46] VITALS: BP 147/100
== END 2019-01-19 19:40 | DRG 202 ==
LOC: ED 03:26 → SUATTDRO 03:26 → 4A 06:25
PROVIDERS: ADMIT Internal Medicine; ATTEND Internal Medicine
DX: J40 Bronchitis, not specified as acute or chronic (principal); Z68.42 Body mass index [BMI] 45.0-49.9, adult; I69.354 Hemiplegia and hemiparesis following cerebral infarction affecting left non-dominant side; R47.01 Aphasia; R06.03 Acute respiratory distress; E66.01 Morbid (severe) obesity due to excess calories; I69.322 Dysarthria following cerebral infarction; K21.9 Gastro-esophageal reflux disease without esophagitis; R13.10 Dysphagia, unspecified; G40.909 Epilepsy, unspecified, not intractable, without status epilepticus; I10 Essential (primary) hypertension; Z88.0 Allergy status to penicillin; Z88.8 Allergy status to other drugs, medicaments and biological substances
CPT/HCPCS: 36415; 71045; 80048; 82550; 82553; 83880; 84484; 85025; 85610; 85730; 87040; 93005; 93010; 94644; G0378; J1644; J1956; J2930